=== PATIENT | female | born 1955 | race Hispanic/Latino ===

== ENCOUNTER 2017-09-03 08:38 | Day surgery (SDC) | payer BC, OTHER ==
[2017-09-03 08:55] VITALS: BMI 25.1
[2017-09-03] MEDS ORDERED: Lactated Ringer's 500 ML IV ONE (08:57)
[2017-09-03] MEDS ORDERED: Propofol 10 mg/ml Inj (20 ML) ONE (10:28)
[2017-09-03] MEDS ORDERED: Lidocaine PF 2% (5 ml) Inj (For Cardiac Arrhy) IV ONE (10:28)
[2017-09-03 11:17] VITALS: TEMP 97
[2017-09-03 11:18] VITALS: BP 114/61; PULSE 63; RESP 17; O2SAT 96
== END 2017-09-03 13:26 | disposition home or self-care (01) ==
LOC: H.ENDO 08:38
PROVIDERS: ATTEND Internal Medicine Gastroenterology
DX: Z12.11 Encounter for screening for malignant neoplasm of colon (principal); F41.9 Anxiety disorder, unspecified; D12.2 Benign neoplasm of ascending colon; K57.30 Diverticulosis of large intestine without perforation or abscess without bleeding
CPT/HCPCS: 45380; 88305; J2704; J7120